=== PATIENT | female | born 1975 | race Caucasian/White ===

== ENCOUNTER 2021-04-06 05:38 | Observation (INO) | payer OTHER ==
[2021-04-04 17:44] VITALS: BMI 27.6
[2021-04-06] MEDS ORDERED: LACTATED RINGERS 1,000 ML IV SCH (05:52)
[2021-04-06] MEDS ORDERED: ONDANSETRON 4 MG/2 ML VIAL IVP ONE (05:52)
[2021-04-06] MEDS ORDERED: DEXAMETHASONE SOD PHOSPHATE 4 MG/ML 1 ML VIAL IV ONE (05:52)
--- NOTE | 2021-04-06 06:46 | P.HPOB ---
History of Present Illness H&P Date: 04/06/21 Chief Complaint: menorrhagia 45 year old presents for [facility] BS with da collette, diagnostic cystoscopy and possible TAYLOR due to menorrhagia and failed ablation. Review of Systems All systems: negative Constitutional: Denies chills, Denies fever Eyes: denies blurred vision, denies pain Ears, nose, mouth and throat: Denies headache, Denies sore throat Cardiovascular: Denies chest pain, Denies shortness of breath Respiratory: Denies cough Gastrointestinal: Denies abdominal pain, Denies diarrhea, Denies nausea, Denies vomiting Genitourinary: Denies dysuria, Denies hematuria Musculoskeletal: Denies myalgias Integumentary: Denies pruritus, Denies rash Neurological: Denies numbness, Denies weakness Psychiatric: Denies anxiety, Denies depression Endocrine: Denies fatigue, Denies weight change Past Medical History Past Medical History: No Reported History Additional Past Medical History / Comment(s): MIGRAINE HEADACHE, BACK PAIN FROM RECENT FALL, History of Any Multi-Drug Resistant Organisms: None Reported Past Surgical History: Tubal Ligation, Uterine Ablation Past Anesthesia/Blood Transfusion Reactions: No Reported Reaction Smoking Status: Current every day smoker - Past Family History Mother Family Medical History: No Reported History Medications and Allergies Home Medications Medication Instructions Recorded Confirmed Type Cyclobenzaprine [Flexeril] 5 - 10 mg PO TID 04/04/21 04/06/21 History Escitalopram [Lexapro] 10 mg PO HS 04/04/21 04/06/21 History Allergies Allergy/AdvReac Type Severity Reaction Status Date / Time No Known Allergies Allergy Verified 04/06/21 06:05 Exam Osteopathic Statement: *. No significant issues noted on an osteopathic structural exam other than those noted in the History and Physical/Consult. Vital Signs Temp Pulse Resp BP Pulse Ox 04/06/21 06:11 97.6 F 57 L 16 100/54 100 Intake and Output 04/05/21 04/05/21 04/06/21 14:59 22:59 06:59 Other: Weight 73.6 kg HEart: RRR Lungs: CTAB Abdomen: soft, nontender Extremeties: neg ken's Assessment and Plan (1) Menorrhagia Current Visit: Yes Status: Acute Code(s): N92.0 - EXCESSIVE AND FREQUENT MENSTRUATION WITH REGULAR CYCLE SNOMED Code(s): 986572942 (2) Fibroid uterus Current Visit: Yes Status: Acute Code(s): D25.9 - LEIOMYOMA OF UTERUS, UNSPECIFIED SNOMED Code(s): 14662429 Plan: 1. TLJohnie BS with da collette, possible TAYLOR and diagnsotic cystoscopy
[2021-04-06] MEDS ORDERED: MIDAZOLAM 2 MG/2 ML VIAL IVP ONE ×2 (06:53→07:08)
[2021-04-06] MEDS ORDERED: fentaNYL (PF) 50 MCG/ML 2 ML AMP IVP ONE ×2 (06:53→07:09)
[2021-04-06] MEDS ORDERED: ROCURONIUM 10 MG/ML (5 ML VIAL) IV ONE (07:13)
[2021-04-06] MEDS ORDERED: LIDOCAINE 1% INJ 10MG/ML (20 ML MDV) ONE (07:13)
[2021-04-06] MEDS ORDERED: HYDROmorphone (PF) 1 MG/ML ONE (07:13)
[2021-04-06] MEDS ORDERED: NEOSTIGMINE 1 MG/ML 10 ML VIAL ONE (07:13)
[2021-04-06] MEDS ORDERED: fentaNYL (PF) 50 MCG/ML 2 ML AMP ONE (07:13)
[2021-04-06] MEDS ORDERED: GLYCOPYRROLATE 0.2 MG/ML 2 ML VIAL ONE (07:13)
[2021-04-06] MEDS ORDERED: SODIUM CHLORIDE 0.9% (PF) 10 ML VIAL ONE (07:13)
[2021-04-06] MEDS ORDERED: MIDAZOLAM 2 MG/2 ML VIAL ONE (07:13)
[2021-04-06] MEDS ORDERED: ROPIVACAINE 5 MG/ML 30 ML VIAL ONE (07:13)
[2021-04-06] MEDS ORDERED: PROPOFOL 10 MG/ML 20 ML VIAL IV ONE (07:13)
[2021-04-06] MEDS ORDERED: SUCCINYLCHOLINE CHLORIDE 100 MG/5 ML SYR IV ONE (07:13)
[2021-04-06] MEDS ORDERED: KETOROLAC 15 MG/ML 1 ML VIAL ONE (07:13)
[2021-04-06] MEDS ORDERED: BUPIVACAINE (PF) 0.25% 30 ML VIAL SQ ONE ×2 (08:03→08:44)
[2021-04-06] MEDS ORDERED: LACTATED RINGERS 1,000 ML IV ONE (08:15)
--- NOTE | 2021-04-06 08:19 | P.ANPRN ---
Procedure Note - Anesthesia - Nerve Block Performed Bilateral Erector Spinae Single Time Out Performed: Yes (0652) Date of Procedure: 04/06/21 Procedure Start Time: 06:53 Procedure Stop Time: 06:58 Location of Patient: PreOp Indication: Acute Post-Operative Pain, Requested by Surgeon Specifically requested for management of pain by DrDwight: Estrella Sol Sedation Type: Sedate with meaningful contact maintained Preparation: Sterile Prep Position: Prone Catheter: None Needle Types: Pajunk Needle Gauge: 21 Ultrasound used to visualize needle placement: Yes Ultrasound used to observe medication spread: Yes Injectate: 0.5% Ropivacaine (see comment for volume) (15cc + 15cc nacl pf) Blood Aspirated: No Pain Paresthesia on Injection Noted: No Resistance on Injection: Normal Image Stored and Saved: Yes Events: Uneventful and Well Tolerated
--- NOTE | 2021-04-06 09:14 | P.OP ---
Date of Procedure: 04/06/21 Preoperative Diagnosis: 1. menorrhagia 2. fibroid uterus 3.vulvar condyloma Postoperative Diagnosis: 1. menorrhagia 2. fibroid uterus 3. vulvar condyloma Procedure(s) Performed: Total laparoscopic hysterectomy bilateral salpingectomy, diagnostic cystoscopy, cauterization of condyloma with cryo-Pen Anesthesia: TAYLOR Surgeon: Estrella Sol Peoplesoft #1: Kt Temple Estimated Blood Loss (ml): 400 IV fluids (ml): 1,000 Urine output (ml): 200 Pathology: other (uterus, cervix, peices of bilateral fallopian tubes) Condition: stable Disposition: PACU Operative Findings: Fibroid uterus sounded to 8 cm and the cervix was 4 cm diameter. Normal ovaries, scarred fallopian tubes. Description of Procedure: Patient taken the operating room where general anesthesia was obtained without difficulty. She is prepped and draped in normal sterile fashion dorsal lithotomy position, legs placed in the Cecil stirrups. Weighted speculum placed in the vagina and the anterior lip the cervix was grasped with single-tooth tenaculum. The uterus sounded to 8 cm and the cervix diameter was 4 cm. The appropriate manipulator tip and ring were placed on the Mary manipulator. The Mary manipulator was then placed in the uterus. Rose catheter was also placed. Attention was then turned to the abdomen and gloves were changed. A 5 mm supraumbilical incision was made the scalpel and a 5 mm optical trocar was placed under direct visualization. 10 cm to the right of this and 2 cm down a 5 mm incision was made and 8 mm da Maggie port was placed under direct visualization. Same measurements on the opposite side of the patient's abdomen, the 5 mm incision was made and 8 mm da Maggie port was placed under direct visualization. In the left upper quadrant a 10 mm incision was made and a 10 mm optical trocar was placed under direct visualization. The 5 mm optical trocar was then replaced with the 8 mm da Maggie camera port. The robot was docked on patient's right side. The camera was introduced and then the monopolar curved scissor and [place] bipolar placed under direct visualization. I broke scrub and went to the physician console. The left mesosalpinx was cauterized with the [place] bipolar and cut with monopolar curved scissors to free the left fallopian tube which was then removed through port.. The left round ligament and utero ovarian ligaments were cauterized with the [place] bipolar and cut with monopolar curved scissors. The posterior leaf of the broad ligament was taken down using the monopolar curved scissors. Anterior leaf of the broad ligament was then taken down using the monopolar curved scissors. The uterine artery was cauterized with the [place] bipolar and cut with monopolar curved scissors. The bladder flap was then started using the monopolar curved scissors. Attention was then turned to the right side of the patient's anatomy and the right mesosalpinx was cauterized with the [place] bipolar and cut with monopolar curved scissors to free a piece of the right fallopian tube was removed through the da Maggie port. The right round ligament and utero-ovarian ligament were cauterized with the [place] bipolar and cut with monopolar curved scissors. Posterior leaf of the broad ligament was taken down using the monopolar curved scissors and the anterior leaf was taken down using the monopolar curved scissors. The uterine artery was cauterized the [place] bipolar cut with monopolar curved scissors. The bladder flap was then finished on this side. Anterior colpotomy was made using the monopolar curved scissors. The rest of the uterus was from the vaginal cuff by following the ring around with the monopolar curved scissors through the uterosacral ligaments back to the anterior portion. Once the uterus and cervix were amputated they were pulled through the vaginal cuff. Hemostasis was assured. The instruments were changed for the Cardier forcep and the viviane suture cut. The vaginal cuff was then closed using O stratafix barbed suture in a running fashion. Hemostasis was again assured and the pelvis was irrigated. All instruments were removed from the abdomen and the robot was undocked. I scrubbed back in to perform a cystoscopy. There were jets from both ureteral orifices. The abdominal incisions were closed with 4-0 Vicryl in a subcuticular fashion. Patient tolerated the procedure well, sponge and instrument counts correct 2 and she was taken to recovery room in stable condition condition
[2021-04-06] MEDS: HYDROmorphone 0.5 MG/0.5 ML SYRINGE IVP PRN ×4 (09:17→09:41)
[2021-04-06] MEDS ORDERED: diphenhydrAMINE 50 MG/ML 1 ML VIAL IVP PRN (10:15)
[2021-04-06] MEDS ORDERED: METOCLOPRAMIDE 5 MG/ML 2 ML VIAL IVP PRN (10:15)
[2021-04-06] MEDS ORDERED: HYDROcodone/APAP 7.5-325MG 1 EACH TAB PO PRN (10:15)
[2021-04-06] MEDS ORDERED: IBUPROFEN 600 MG TAB PO PRN (10:15)
[2021-04-06] MEDS ORDERED: ONDANSETRON 4 MG/2 ML VIAL IVP PRN (10:15)
[2021-04-06 10:33] VITALS: RESP 16
[2021-04-06] MEDS: KETOROLAC 30 MG/ML 1 ML VIAL IVP PRN ×2 (15:09→21:32)
[2021-04-06] MEDS: SIMETHICONE 80 MG CHEWABLE PO PRN (16:59)
[2021-04-06] MEDS: SENNOSIDES-DOCUSATE SODIUM 1 EACH TAB PO SCH (21:32)
[2021-04-07] MEDS: SIMETHICONE 80 MG CHEWABLE PO PRN (05:10)
[2021-04-07 06:46] LABS: Basophils % (A) 0 %; Eosinophils # (A) 0.1 k/uL (0-0.7); Eosinophils % (A) 1 %; HCT 33.5 % (34.0-46.0); HGB 11.7 gm/dL (11.4-16.0); Lymphocytes # (A) 1.4 k/uL (1.0-4.8); Lymphocytes % (A) 16 %; MCH 32.4 pg (25.0-35.0); MCV 92.5 fL (80.0-100.0); Mean Platelet Volume 8.9; Monocytes # (A) 0.4 k/uL (0-1.0); Monocytes % (A) 5 %; Neutrophils # (A) 7.2 k/uL (1.3-7.7); Neutrophils % (A) 79 %; Platelet Count 191 k/uL (150-450); RBC 3.62 m/uL (3.80-5.40); WBC 9.2 k/uL (3.8-10.6)
--- NOTE | 2021-04-07 07:00 | P.DS ---
Providers Date of admission: 04/06/21 22:27 Expected date of discharge: 04/07/21 Attending physician: Estrella Sol Primary care physician: Monique Gale - Discharge Diagnosis(es) (1) Menorrhagia Current Visit: Yes Status: Resolved (2) Fibroid uterus Current Visit: Yes Status: Resolved (3) Status post robot-assisted surgical procedure Current Visit: Yes Status: Acute Hospital Course: Patient presented for TL[facility]BS using da Maggie due to menorrhagia. She underwent this procedure without complication. Her pain is well-controlled. She is ambulating and voiding without difficulty. Denies nausea, vomiting, chest pain, shortness of breath or any calf pain. Incisions are clean, dry, intact. Patient will be discharged home postoperative day #1 in stable condition to follow-up with me in 3 weeks. Plan - Discharge Summary Discharge Rx Participant: Yes New Discharge Prescriptions: New HYDROcodone/APAP 7.5-325MG [Bodega 7.5-325] 1 each PO Q6HR PRN #12 tab PRN Reason: Pain Ibuprofen [Motrin] 600 mg PO Q6HR PRN #40 tab PRN Reason: Mild Discomfort No Action Escitalopram [Lexapro] 10 mg PO HS Cyclobenzaprine [Flexeril] 5 - 10 mg PO TID Discharge Medication List Cyclobenzaprine [Flexeril] 5 - 10 mg PO TID 04/04/21 [History] Escitalopram [Lexapro] 10 mg PO HS 04/04/21 [History] HYDROcodone/APAP 7.5-325MG [Bodega 7.5-325] 1 each PO Q6HR PRN #12 tab 04/07/21 [Rx] Ibuprofen [Motrin] 600 mg PO Q6HR PRN #40 tab 04/07/21 [Rx] Follow up Appointment(s)/Referral(s): Estrella Sol DO [Doctor of Osteopathic Medicine] - 3 Weeks Discharge Disposition: HOME SELF-CARE
[2021-04-07] MEDS: SENNOSIDES-DOCUSATE SODIUM 1 EACH TAB PO SCH (08:53)
[2021-04-07 09:02] VITALS: BP 103/68; PULSE 75; TEMP 97.9
[2021-04-07] MEDS ORDERED: ACETAMINOPHEN TAB 325 MG TAB PO PRN (09:16)
== END 2021-04-07 10:05 | disposition home or self-care (01) ==
LOC: OR 05:38 → 4FBP 08:57 → OR 22:27
PROVIDERS: ADMIT Obstetrics & Gynecology; ATTEND Obstetrics & Gynecology
DX: D25.2 Subserosal leiomyoma of uterus (principal); A63.0 Anogenital (venereal) warts; N80.0 Endometriosis of uterus; N99.85 Post endometrial ablation syndrome; N72 Inflammatory disease of cervix uteri; N87.9 Dysplasia of cervix uteri, unspecified; N88.8 Other specified noninflammatory disorders of cervix uteri; G43.909 Migraine, unspecified, not intractable, without status migrainosus; M54.9 Dorsalgia, unspecified; F41.9 Anxiety disorder, unspecified; F17.210 Nicotine dependence, cigarettes, uncomplicated; Z20.822 Contact with and (suspected) exposure to COVID-19; Z79.899 Other long term (current) drug therapy
CPT/HCPCS: 81025; 64999; 86900; 86901; 85025; 86850; 88307; 87635; 58571; 56501; G0378 ×2; J2250; J1100; J2710; J2765; J0690; J2405; J2001; J3010; J1885 ×2; J1170 ×2; J2795; J0330; J2704